=== PATIENT | male | born 2005 | race Caucasian/White ===

== ENCOUNTER 2025-02-27 10:14 | Outpatient (CLI) | payer OTHER ==
[~2025-02-27 10:14] MED LIST: Iopamidol 370 76% 100 ML VIAL ONE
== END 2025-02-27 10:15 | disposition home or self-care (01) ==
LOC: CSHCT 10:14
PROVIDERS: ATTEND Physician Assistant Surgical
DX: K76.89 Other specified diseases of liver (principal); R16.0 Hepatomegaly, not elsewhere classified
CPT/HCPCS: 74178; Q9967